=== PATIENT | male | born 1970 | race Caucasian/White ===

== ENCOUNTER 2018-01-04 12:20 | Inpatient (IN) | payer SELFPAY ==
[2018-01-04 12:56] LABS: #Basophils 0.1 thou/uL (0.0-0.2); #Eosinphils 0.1 thou/uL (0.0-0.7); #Lymphocytes 2.4 thou/uL (1.20-3.40); #Monocytes 1.1 thou/uL (0.11-0.59); %Basophils 0.6 % (0.0-1.0); %Eosinophils 0.5 % (0.0-10.0); %Lymphocytes 15.2 % (21.0-51.0); %Monocytes 7.2 % (0.0-10.0); %Neutrophils 76.5 % (42.0-75.0); Hemoglobin 15.9 g/dL (14.0-18.0); Mean Corpuscular HGB CONC 34.8 g/dL (32.0-36.0); Mean Corpuscular Hemoglobin 32.3 pg (27.0-31.0); Mean Platelet Volume 7.8 fL (7.4-10.4); Platelet Count 303 thou/uL (130-400); Red Blood Cell (RBC) Count 4.91 mill/uL (4.70-6.10); White Blood Cell (WBC) Count 15.7 thou/uL (4.8-10.8)
[2018-01-04 13:10] LABS: ALT (SGPT) 23 U/L (8-55); AST (SGOT) 25 U/L (5-34); Albumin 4.3 g/dL (3.5-5.0); Alkaline Phosphatase 116 U/L (40-150); Anion Gap 26 mmol/L (10-20); BUN (Urea Nitrogen) 58 mg/dL (8.9-20.6); Bilirubin, Total 0.3 mg/dL (0.2-1.2); CK (CPK) 681 U/L (30-200); Calc. Creatinine Clearance 0 mL/min (70-130); Calcium 8.8 mg/dL (7.8-10.44); Carbon Dioxide 13 mmol/L (22-29); Chloride 100 mmol/L (98-107); Estimated GFR-MDRD 8; Globulin 3.5 g/dL (2.4-3.5); Glucose 157 mg/dL (70-105); Lipase 37 U/L (8-78); Potassium 3.8 mmol/L (3.5-5.1); Protein, Total 7.8 g/dL (6.0-8.3); Sodium 135 mmol/L (136-145)
[2018-01-04 13:14] LABS: Troponin I Less than 0.010 ng/mL (< 0.028)
[2018-01-04 13:18] LABS: CKMB 12.3 ng/mL (0-6.6)
[2018-01-04 14:17] LABS: Acetaminophen Less than 6.0 mcg/mL (10.0-30.0); Alcohol Less than 10 mg/dL (Less than 10)
[2018-01-04 15:15] LABS: Lactic Acid 2.2 mmol/L (0.5-2.2)
--- NOTE | 2018-01-04 15:31 | RAD ---
PORTABLE AP CHEST XRAY: DATE: 01/04/18. HISTORY: Syncope. COMPARISON: None available. FINDINGS: Cardiac silhouette is magnified by projection but is at the upper limits of normal in size. Pulmonar y vasculature is within normal limits. The lungs are clear. Osseous structures are intact. IMPRESSION: No acute cardiopulmonary process. POS: [facility]
--- NOTE | 2018-01-04 15:41 | CT ---
ABDOMEN AND PELVIC CT SCAN WITHOUT IV CONTRAST: History: 47-year-old male with history of abdominal pain with vomiting and back muscle spasms. FINDINGS: The lung bases appear to be clear of acute process other than some dependent positional changes poste riorly in the lower lungs. The liver, gallbladder, pancreas, spleen, and adrenal glands are unremarka ble. No renal calculus or obstruction. Normal appearing appendix. Bilateral fat containing inguina l hernias, larger on the right side. No abscess, adenopathy, or abnormal fluid collection within the abdomen or pelvis. IMPRESSION: Bilateral fat containing inguinal hernias, larger on the right side. Posterior positional changes in the lower lung zones. No other significant process. POS: [facility]
--- NOTE | 2018-01-04 15:55 | CT ---
BRAIN CT WITHOUT IV CONTRAST: History: 47-year-old male with history of syncope, neck pain. FINDINGS: There is some focal right scalp swelling over the right parietal lobe. Abnormal encephalomalacic wallace ges in the left posterior fossa, evidence for old infarct changes involving the left cerebellar hemis phere. No mass or midline shift. No intra or extraaxial hemorrhage. IMPRESSION: Evidence for old left cerebellar hemisphere infarct changes. No mass or bleed or other acute process. Right focal parietal scalp swelling. POS: [facility]
--- NOTE | 2018-01-04 16:06 | CT ---
NONCONTRAST CT CERVICAL SPINE: Date: 01-04-18 History: Syncopal episode, bad neck pain at work. Technique: Contiguous axial CT images are obtained through the cervical spine from skull base to the T1-2 level. Sagittal and coronal reformatted images are provided. FINDINGS: There is no evidence of fracture, subluxation involving the cervical spine. There are degenerative ch anges in the cervical spine with uncinate process hypertrophy on the right at the C3-4 level resultin g in mild right sided neural foraminal narrowing. Uncinate process hypertrophy also present at the C4 -5 level resulting in mass effect on the subarachnoid space without significant narrowing of the cent ral spinal canal. No fracture or subluxation is seen involving the cervical spine. There is straightening of the normal cervical lordotic curvature. Prevertebral soft tissues are within normal limits. Lung apices are clear. IMPRESSION: Mild degenerative changes of the cervical spine, but no fracture or subluxation seen. POS: [facility]
[2018-01-04] MEDS ORDERED: Ondansetron HCl/PF 4 MG/2 ML Vial IVP PRN (16:13)
[2018-01-04] MEDS ORDERED: Bisacodyl 5 MG TAB PO PRN (16:13)
[2018-01-04] MEDS ORDERED: Senokot 8.6 MG TAB PO PRN (16:13)
[2018-01-04 17:39] LABS: Hemoglobin A1c 7.9 % (4.0-6.0)
[2018-01-04 17:40] LABS: Acetaminophen Less than 6.0 mcg/mL (10.0-30.0); Alcohol Less than 10 mg/dL (Less than 10); Salicylate Less than 8.0 mg/dL (15.0-30.0)
--- NOTE | 2018-01-04 18:55 | HP ---
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 CHIEF COMPLAINT: Syncope. HISTORY OF PRESENT ILLNESS: This is a 47-year-old male with a known history of hypertension, who pre sents today after feeling very lightheaded and nearly passing out while at work. 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 The patient denies any prior similar issues. Endorses feeling overall weak and fatigued over the last few days where he has also been trying to increase his water and Powerade int deanna to try "keep from being dehydrated." The patient states that he typically drinks very little dur ing his 8-9 hour shift at work, but does try to keep up with fluid intake at home. At the time of my evaluation in the emergency department, the patient states that he feels significan tly better. Of note, it appears upon initial presentation to the ER, he was found to have a systolic blood pressure in the 50s. At the time of my evaluation, the patient's blood pressure has been sign ificantly improved and is currently running with systolic in the 90-110 range. The patient has also received 3 liters IV fluid at the time of my evaluation. REVIEW OF SYSTEMS: As per HPI. Constitutional: No fevers, no chills, no significant weight loss or gain over the last 2 months. HEENT: The patient endorses having a sensation of lightheadedness bef ore coming in, particularly when standing up or sitting up. The patient states he has not tried to g et out of bed since being in the emergency department, so he is unable to tell me if that is improved . Denies any other vision changes or dizziness. Denies any headaches. Cardiovascular: Denies any chest pain, chest pressure, left-sided arm numbness or tingling. Respiratory: Denies any shortness of breath, dyspnea with exertion, cough, congestion or recent upper respiratory illness. Gastrointes tinal: Denies any nausea, vomiting, abdominal pain, diarrhea or constipation. Of note, the patient states that he will occasionally get "heartburn" which is alleviated by taking Pepto-Bismol. He has been having increased bouts of this over the last 2-3 weeks where he has an episode every 2-3 days, t ypically while he is working. Musculoskeletal: Denies any new myalgias or arthralgias. Skin: No n ew rashes or lymphadenopathy. Genitourinary: Denies any change in urinary frequency, quantity, colo r or output. The patient states that his urine typically is pretty dark at work where he drinks very little and what he does drink tends to be soda. However, the patient states that when he drinks martha er and Powerade it tends to "clear up." Over the last few days while trying to drink more water and Powerade, he denies that his urine has" cleared up" as it typically does. Remainder review of system s is otherwise negative. PAST MEDICAL HISTORY: Significant for; 1. Hypothyroidism. 2. Hypertension. PAST SURGICAL HISTORY: Denies any prior surgery. HOME MEDICATIONS: It appears that he does not have any medications currently listed as his medicatio n list in the EMR. His is with him at bedside and states that she needs to go home in order to get his medication list. She states that he does take a thyroid medication, two blood pressure medic ations including clonidine as one of them. She also indicates that he takes ibuprofen and some other medication that she cannot recall for some occasional sciatic pain. ALLERGIES: No known drug allergies. FAMILY HISTORY: The patient denies any known family history of renal disease or cerebrovascular dise ase or cardiac disease. 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 Denies any drugs, alcohol, or tobacco use. He i s accompanied today by his at bedside and states he wishes to be FULL CODE at this point in time . PHYSICAL EXAMINATION: GENERAL: The patient is awake, alert, and conversant. Reasonable affect and a reasonable historian. HEENT: Normocephalic, atraumatic. Slightly dry mucous membranes. Equal ocular motions are intact. CARDIOVASCULAR: S1, S2. No murmurs, rubs or gallops. Soft heart tones. Pulses 2+ bilateral upper extremities. No pitting pedal edema. RESPIRATORY: Reasonable air movement. No conversational dyspnea. No wheezes, no rales. Grossly cl ear to auscultation. ABDOMEN: Positive bowel sounds, large, soft, nontender to palpation. MUSCULOSKELETAL: Moving all 4 extremities independently and able to sit up in the bed without diffic ulty or assistance. LABORATORY DATA AND IMAGING DATA: WBC 15.7, hemoglobin 15.9, hematocrit 45.6, platelets 303. Sodium 135, potassium 3.8, chloride 100, BUN 58, creatinine 7.26, glucose 157. Lactic acid 2.2, calcium 8. 8, total bilirubin 0.3, AST 25, ALT 23, alkaline phosphatase 116, creatine kinase 681, troponin less than 0.01. Total protein 7.8, albumin 4.3. So far the toxicology demonstrates salicylate of 13.0, a cetaminophen less than 6, alcohol less than 10 and beta hydroxybutyrate 1.[address] result. Impression: "Mild degenerative changes of the cervical spine, but no frac ture or subluxation seen." On 01/04/2018, brain CT. Impression: "Evidence for old left cerebellar hemisphere infarct changes. No mass or bleed or other acute process. Right focal parietal scalp swelling." On 01/04/2018, abdomen and pelvis CT. Impression: "Bilateral fat containing inguinal hernias, large r on the right side. Posterior positional changes in the lower lung zones. No other significant pro cess." On 01/04/2018, chest x-ray. Impression: "No acute cardiopulmonary process." ASSESSMENT AND PLAN: This is a 47-year-old male who presented with a chief complaint of syncope. 1. Syncope with hypotension on the initial presentation, the patient's blood pressure significantly improved with IV fluid hydration. We will closely continue to monitor. We would recommend checking orthostatic vital signs in this gentleman. Concern for a component of dehydration; however, his pict ure is complicated by other issues as well. 2. Acute kidney injury with a creatinine of 7.0 and no other known prior history of chronic renal di sease. Continue with hydration. Recheck a BMP. We will check urine electrolytes. It will be impor tant to obtain the patient's home medication regimen as well. I appreciate Nephrology consultation. Question if this is purely prerenal or related to some other process. 3. Hypothyroidism. Unknown levothyroxine dose. Again, we will need to obtain a medication reconcil iation. In the meantime, check a TSH. 4. Old cerebellar infarct of which the patient is unaware of. This is a new diagnosis as far as the patient is concerned, however, this sounds like an old event as well. Apparently, there are no resi dual deficits at this point in time. However, it would be important to assess for modifiable risk fa ctors in this patient as well. 5. Vague complaint of abdominal discomfort while this certainly could be a reflux in this gentleman who has already sustained a stroke and has risk factor including hypertension. We will go ahead and check a second troponin. Obtain a repeat EKG and an echocardiogram on the off chance that he has als o sustained a silent cardiac event that may compound his ability to tolerate IV fluid hydration. 6. Diet: As tolerated. 7. Activity: As tolerated. Orthostatic vital signs requested. 8. Deep venous thrombosis prophylaxis with heparin. Thank you for asking me to care for the patient. Questions or concerns, contact me at [facility].
[2018-01-04 20:04] LABS: Bilirubin Negative (Negative); Blood, Urine Moderate (Negative); Clarity CLEAR (Clear); Glucose, Urine (Dipstick) Negative (Negative); Leukocyte Negative (Negative); Nitrite Negative (Negative); Protein, Urine (Dipstick) 30 mg/dL (Neg-Trace); Specific Gravity, Urine 1.016 (1.002-1.036); Urobilinogen 0.2 mg/dL (0.2-1.0)
[2018-01-04 20:07] LABS: Bacteria/HPF None Seen HPF (None Seen); RBC/HPF 0-3 HPF (0-3); Squamous Epithelial 0-3 HPF (0-3); WBC/HPF 0-3 HPF (0-3)
[2018-01-04 20:08] LABS: Pathc Cast-AUWi Flag 3.48 (0-2.49)
[2018-01-04 20:19] LABS: Hyaline Casts/LPF 4-6 HYALINE CAST LPF (0-3 Hyaline); Other Casts/LPF None Seen LPF (0-3 Hyaline)
[2018-01-04 20:20] LABS: Creatinine, Urine 123.52 mg/dL (63-166)
[2018-01-04] MEDS: Lactated Ringer's 1,000 ML IV SCH (20:51)
--- NOTE | 2018-01-04 22:12 | ULT ---
RENAL ULTRASOUND: History: Renal insufficiency. FINDINGS: Real-time imaging of the right and left kidneys were performed. The right kidney measures 12.1 cm and the left kidney 10.7 cm in size. No signs of cyst, mass, or obstruction. Bladder region is unremarka ble. Bilateral ureteral jets are noted. IMPRESSION: Unremarkable renal ultrasound. POS: [facility]
[2018-01-04] MEDS: Heparin 5,000 UNITS/ML VIAL SC SCH (22:50)
[2018-01-04] MEDS: Docusate 100 MG CAP PO SCH (22:50)
[2018-01-04] MEDS: Famotidine/PF 20 mg/2ml Vial SLOW IVP SCH (22:53)
--- NOTE | 2018-01-05 03:20 | CON ---
DATE OF CONSULTATION: 01/04/2018 HISTORY OF PRESENT ILLNESS: Mr. Samuel is a 47-year-old white male who was admitted for syncopal epis ode. According to the history, the patient passed out while working. 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 During the initial evaluation at the ER, he was noted to be in acute kidney injury. Caitlyn ent denies any previous knowledge of any kidney dysfunction. REVIEW OF SYSTEMS: Positive for syncopal episode. No chest pain. No shortness of breath, no nausea , no vomiting, no diarrhea. Appetite fair. Energy level is fair. No abdominal pain, no headache, n o fever or chills, no gross hematuria, no dysuria, no frequency, occasional joint pains. Positive fo r some myalgia. HOME MEDICATIONS: Lisinopril/hydrochlorothiazide -- 20/25 one tab daily, clonidine 0.1 mg b.i.d., ib uprofen 800 mg b.i.d., famotidine 20 mg tab once a day, levothyroxine 75 mcg. PAST MEDICAL HISTORY: Hypertension, DJD, hypertension, hypothyroidism. PAST SURGICAL HISTORY: No significant surgeries. SOCIAL HISTORY: Patient is , two stepchildren, lives with his . No smoking, no alcohol i ntake. Originally from [place], currently lives in [place], moved recently in this area. 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 Education 7th grade. No IV drug abuse. No blood transfusion . ALLERGIES: None. TRAUMA: None. IMMUNIZATIONS: Not up to date. HOSPITALIZATIONS: Please see past medical history. PHYSICAL EXAMINATION: VITAL SIGNS: Blood pressure is currently at 176/94, heart rate is noted at 48, temperature 97.8, O2 sat 98%, respiratory rate 21, temperature 97.8. GENERAL: Awake, alert, supine, comfortable, morbidly obese. SKIN: Adequate turgor. HEENT: He has pinkish conjunctivae, anicteric sclerae. NECK: No neck mass, no carotid bruits, no JVD. CHEST: No deformities. LUNGS: Clear breath sounds, no wheezing, no crackles. HEART: Bradycardic. No murmur, no gallops or rubs. ABDOMEN: Globular, soft, nontender, no masses. EXTREMITIES: No edema, no deformities. NEUROLOGIC: Awake, oriented to 3 spheres. Moving all extremities. No tremors. No asterixis. No a taxia. LABORATORY DATA: On 01/04/2018, white count 15.7, hemoglobin 15.9, hematocrit 45.6. Sodium 135, pot assium 4.8, chloride 100, carbon dioxide 13, BUN 58, creatinine 7.26, glucose 157, calcium 8.8, AST 2 5, ALT 23, albumin 4.3, troponin I less than 0.010. TSH 3.4. Chest x-ray of 01/04/2018 showed no ac [place] cardiopulmonary process. CT scan of the abdomen and pelvis shows bilateral fat containing inguin al hernias. No acute intra-abdominal pathology. CT scan of the brain, old left cerebellar hemispher ic infarct. CT scan of the cervical spine shows mild DJD. Urinalysis shows protein of 30, no pigmented granular casts. Urine creatinine 123. Urine sodium is 70. ASSESSMENT AND PLAN: 1. Acute kidney injury, consider hemodynamically mediated renal dysfunction. Patient has been takin g NSAIDs and lisinopril/hydrochlorothiazide. He may also have a component of volume depletion. Agre e with the aggressive volume repletion. I will at least maintain this patient on lactated Ringer's a t 125 mL per hour. There is no evidence of acute tubular necrosis based on the urine sediment. A re nal ultrasound is being done with this patient. Please note that there is no indication for any acute dialytic intervention tonight. 2. Bradycardia. The patient is off clonidine. 3. Hypertension. Hold lisinopril/hydrochlorothiazide -- Start nifedipine 30 mg XL tab once a day. Overall, agree with current management. Case discussed at length with the patient and his .
[2018-01-05] MEDS: NIFEdipine XL 30 MG TAB PO SCH (03:58)
[2018-01-05] MEDS: Lactated Ringer's 1,000 ML IV SCH ×3 (03:59→20:29)
[2018-01-05 06:28] LABS: #Basophils 0.1 thou/uL (0.0-0.2); #Eosinphils 0.2 thou/uL (0.0-0.7); #Lymphocytes 2.9 thou/uL (1.20-3.40); #Monocytes 0.9 thou/uL (0.11-0.59); #Neutrophils 6.2 thou/uL (1.40-6.50); %Basophils 0.8 % (0.0-1.0); %Eosinophils 1.7 % (0.0-10.0); %Lymphocytes 28.3 % (21.0-51.0); %Monocytes 8.4 % (0.0-10.0); %Neutrophils 60.8 % (42.0-75.0); Hemoglobin 13.2 g/dL (14.0-18.0); Mean Corpuscular HGB CONC 35.4 g/dL (32.0-36.0); Mean Corpuscular Hemoglobin 33.3 pg (27.0-31.0); Mean Corpuscular Volume 93.9 fL (78.0-98.0); Mean Platelet Volume 8.2 fL (7.4-10.4); Platelet Count 235 thou/uL (130-400); RBC Distribution Width 11.9 % (11.5-14.5); Red Blood Cell (RBC) Count 3.96 mill/uL (4.70-6.10); White Blood Cell (WBC) Count 10.1 thou/uL (4.8-10.8)
[2018-01-05 06:39] LABS: Anion Gap 13 mmol/L (10-20); BUN (Urea Nitrogen) 43 mg/dL (8.9-20.6); Calc. Creatinine Clearance 56 mL/min (70-130); Carbon Dioxide 19 mmol/L (22-29); Chloride 108 mmol/L (98-107); Estimated GFR-MDRD 22; Glucose 189 mg/dL (70-105); Potassium 3.2 mmol/L (3.5-5.1); Sodium 137 mmol/L (136-145)
[2018-01-05] MEDS: Heparin 5,000 UNITS/ML VIAL SC SCH ×3 (08:35→20:29)
[2018-01-05] MEDS: Docusate 100 MG CAP PO SCH ×2 (08:35→20:28)
[2018-01-05] MEDS ORDERED: Potassium Chloride 20 MEQ TAB PO SCH (10:00)
[2018-01-05] MEDS ORDERED: Cyclobenzaprine 10 MG TAB PO PRN (10:22)
--- NOTE | 2018-01-05 10:24 | PDOC.PN ---
- Subjective Encounter Start Date: 01/05/18 Encounter Start Time: 10:22 Subjective: nsg notes rev, maykel ovn, pt no new c/o, at bedside -: overall feels better, states he heard about the cerebellar stroke -: before. needs to get set up with new PCP - Objective Vital Signs & Weight: Vital Signs (12 hours) Temp Pulse Resp BP Pulse Ox 01/05/18 08:23 99 01/05/18 07:28 98.4 F 52 L 17 100 01/05/18 04:00 98.4 F 01/05/18 03:58 48 L 170/80 H Weight Weight 296 lb 4.82 oz Most Recent Monitor Data Heart Rate from ECG 54 NIBP 146/85 NIBP BP-Mean 96 Respiration from ECG 13 SpO2 99 I&O: 01/04/18 01/05/18 01/06/18 06:59 06:59 06:59 Intake Total 2210 0 Output Total 2150 725 Balance 60 -725 Result Diagrams: 01/05/18 02:51 01/05/18 02:51 Phys Exam - Physical Examination Constitutional: NAD lying in hospital bed HEENT: PERRLA, moist MMs, sclera anicteric Respiratory: no wheezing, no rales, no rhonchi, clear to auscultation bilateral Cardiovascular: RRR, no significant murmur, no rub Gastrointestinal: soft, non-tender, no distention, positive bowel sounds Musculoskeletal: pulses present Neurological: moves all 4 limbs Psychiatric: normal affect, A&O x 3 Dx/Plan - Plan cont current plan of care 1. Syncope with hypotension hypotension resolved, starting to resume home hypertension hold home lisinopril/ hctz, has been started on nifedipine 2. Acute kidney injury apprec nephrology c/s continue IVF improving renal fxn, repeat BMP in AM 3. Hypothyroidism. stable, cont home levothyroxine 4. Old cerebellar infarct stable 5. Vague complaint of abdominal discomfort resolved 6. Diet: As tolerated. 7. Activity: As tolerated. Orthostatic vital signs requested. 8. Deep venous thrombosis prophylaxis with heparin. transfer to tele d/w pt and and bedside nsg Review of Systems - Medications/Allergies Allergies/Adverse Reactions: Allergies Allergy/AdvReac Type Severity Reaction Status Date / Time No Known Allergies Allergy Unverified 01/04/18 17:53 Medications: Current Medications Bisacodyl (Dulcolax) 10 mg PO DAILYPRN PRN PRN Reason: Constipation Cyclobenzaprine HCl (Flexeril) 5 mg PO TID PRN PRN Reason: Muscle Spasm Docusate Sodium (Colace) 100 mg PO BID [facility] Last Admin: 01/05/18 08:35 Dose: 100 mg Famotidine (Pepcid) 20 mg SLOW IVP 2100 [facility] Last Admin: 01/04/18 22:53 Dose: 20 mg Heparin Sodium (Porcine) (Heparin) 5,000 units SC TID [facility] Last Admin: 01/05/18 08:35 Dose: 5,000 units Lactated Ringer's (Lactated Ringer's) 1,000 mls @ 125 mls/hr IV .Q8H [facility] Last Admin: 01/05/18 03:59 Dose: 1,000 mls Levothyroxine Sodium (Synthroid) 75 mcg PO 0600 [facility] Nifedipine (Procardia Xl) 30 mg PO DAILY [facility] Last Admin: 01/05/18 03:58 Dose: 30 mg Ondansetron HCl (Zofran) 4 mg IVP Q6H PRN PRN Reason: Nausea/Vomiting Potassium Chloride (K-Dur) 20 meq PO 1000 [facility] Stop: 01/05/18 12:00 Last Admin: 01/05/18 09:40 Dose: 20 meq Senna (Senokot) 2 tab PO HSPRN PRN PRN Reason: Constipation
--- NOTE | 2018-01-05 10:48 | PRG ---
DATE OF SERVICE: 01/05/2018 SERVICE: Renal Medicine. SUBJECTIVE: Mr. Samuel is a 47-year-old white male, who was seen for an acute kidney injury that was hemodynamically-mediated renal dysfunction. He was empirically given volume repletion. Please note, this patient has been taking NSAIDs and FOUZIA inhibitors. The ____ been discontinued. This morning, he has no new complaints. Feeling better. No chest pain or shortness of breath. PHYSICAL EXAMINATION: VITAL SIGNS: Blood pressure 149/85, heart rate 67, respiratory rate 20, pulse ox 99%. GENERAL EXAM: Awake, supine, comfortable, obese, not in distress. SKIN: Adequate turgor. HEENT: He has pinkish conjunctivae, anicteric sclerae. NECK: No neck mass, no carotid bruits, no JVD. CHEST: No deformities. LUNGS: Clear breath sounds. No wheezing, no crackles. HEART: Normal sinus rhythm. No murmur, no gallops, no rubs. ABDOMEN: Globular, soft, nontender, no masses. EXTREMITIES: No edema, no deformities. Medications of 01/05/2018 reviewed. LABORATORY DATA: Laboratories of 01/05/2018, white count 10.1, hemoglobin 13.2. Sodium 137, potassi um 3.2, chloride 108, carbon dioxide 19, BUN 43, creatinine 3.02, glucose 189, calcium 8.0. Troponin I less than 0.010. Renal ultrasound of 01/04/2018, unremarkable renal ultrasound. ASSESSMENT AND PLAN: 1. Acute kidney injury - hemodynamically-mediated renal dysfunction. Continue supportive care, cont inue IV hydration until the patient reaches baseline renal function, which I presume is a normal crea tinine. No indication for any dialytic intervention. He is tolerating IV fluid. 2. Mild hypokalemia, p.r.n. potassium supplementation. 3. Hypertension, stable. Continue current nifedipine. Recheck basic metabolic panel and CBC in a.m.
[2018-01-05 17:45] VITALS: BMI 35.9
[2018-01-05] MEDS: Famotidine/PF 20 mg/2ml Vial SLOW IVP SCH (20:28)
--- NOTE | 2018-01-06 02:10 | CON ---
DATE OF CONSULTATION: 01/05/2018 HISTORY OF PRESENT ILLNESS: Sohail Samuel is a 47-year-old gentleman who was admitted for syncope. 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 He denies working outdoors. He was admitted with acute renal failure. He is improved. I was consulted because of his presence in the ICU. PAST MEDICAL HISTORY: Remarkable for hypothyroidism, on Synthroid; hypertension , on lisinopril, hydrochlorothiazide, on Catapres; and history of reflux, on Pepcid. SOCIAL HISTORY: He is a nonsmoker, nondrinker. He does not use drugs. 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 FAMILY HISTORY: Negative for lung disease in early age. ALLERGIES: He has no drug allergies. REVIEW OF SYSTEMS: Ten point system review completed, otherwise negative. He says he is feeling better. PHYSICAL EXAMINATION: VITAL SIGNS: He is afebrile, heart rate 57, respiratory rate is 16, oximetry is 97 on room air, blood pressure 158/101. HEENT: Pupils are equal. Sclerae is anicteric. NECK: Supple. LUNGS: Clear. HEART: Regular rhythm. S1 and S2 are normal. There is no S4. ABDOMEN: Soft and nontender. EXTREMITIES: No clubbing, cyanosis, or edema. NEUROLOGIC: Nonfocal. LABORATORY DATA AND IMAGING: Ejection fraction is normal on echo. He has no valvular heart disease. White count 10.1, hemoglobin 13.2, platelets 235. Sodium 137, potassium 3.2, chloride 108, bicarb 19, BUN 43, creatinine 3.02. IMPRESSION AND PLAN: 1. Acute renal failure secondary to intravascular volume depletion. 2. Probable chronic underlying hypertensive renal disease. Hopefully, his renal function will return to normal. 3. Hypertension, poorly controlled. 4. Obesity, at risk for sleep apnea. He denies snoring. His family denies any symptoms of sleep apnea, so it will be reasonable to get a sleep study at a later date. He is stable to move out of the critical care unit. His blood pressure needs to be controlled. Given that he has poor p.o. intake of liquids during the day, it would be reasonable to eliminate the diuretic from his hypertension medications. This is a 70 minute consult with greater than 50% of time spent on unit with coordination of care. [facility]
[2018-01-06 05:58] LABS: #Basophils 0.1 thou/uL (0.0-0.2); #Eosinphils 0.2 thou/uL (0.0-0.7); #Lymphocytes 2.5 thou/uL (1.20-3.40); #Monocytes 0.7 thou/uL (0.11-0.59); #Neutrophils 3.7 thou/uL (1.40-6.50); %Basophils 0.8 % (0.0-1.0); %Eosinophils 2.4 % (0.0-10.0); %Lymphocytes 34.8 % (21.0-51.0); %Monocytes 9.9 % (0.0-10.0); %Neutrophils 52.1 % (42.0-75.0); Hemoglobin 13.4 g/dL (14.0-18.0); Mean Corpuscular HGB CONC 35.6 g/dL (32.0-36.0); Mean Corpuscular Hemoglobin 33.2 pg (27.0-31.0); Mean Corpuscular Volume 93.1 fL (78.0-98.0); Mean Platelet Volume 7.8 fL (7.4-10.4); Platelet Count 245 thou/uL (130-400); RBC Distribution Width 11.8 % (11.5-14.5); Red Blood Cell (RBC) Count 4.04 mill/uL (4.70-6.10); White Blood Cell (WBC) Count 7.1 thou/uL (4.8-10.8)
[2018-01-06] MEDS ORDERED: Levothyroxine Sodium 75 MCG TAB PO SCH (06:00)
[2018-01-06 06:14] LABS: Anion Gap 11 mmol/L (10-20); BUN (Urea Nitrogen) 23 mg/dL (8.9-20.6); Calc. Creatinine Clearance 169 mL/min (70-130); Calcium 8.7 mg/dL (7.8-10.44); Carbon Dioxide 23 mmol/L (22-29); Chloride 107 mmol/L (98-107); Cholesterol 169 mg/dl (< 200 Desired); Estimated GFR-MDRD 79; Glucose 161 mg/dL (70-105); HDL Cholesterol 34 mg/dL (>60 Neg Risk); LDL Cholesterol, Calculated 76 mg/dL; Potassium 3.1 mmol/L (3.5-5.1); Sodium 138 mmol/L (136-145); Triglycerides 293 mg/dL (Less than 150)
[2018-01-06] MEDS: NIFEdipine XL 30 MG TAB PO SCH (08:07)
[2018-01-06] MEDS: Docusate 100 MG CAP PO SCH (08:07)
[2018-01-06] MEDS: Heparin 5,000 UNITS/ML VIAL SC SCH (08:08)
[2018-01-06] MEDS ORDERED: Potassium Chloride 20 MEQ TAB PO SCH (09:15)
--- NOTE | 2018-01-06 09:47 | PRG ---
DATE OF SERVICE: 01/06/2018 SERVICE: Renal Medicine. SUBJECTIVE: Mr. Samuel is a 47-year-old white male who was seen for an acute kidney injury that was h emodynamically mediated renal dysfunction. He was taking FOUZIA inhibitors as well as NSAIDs. This has been discontinued. He has also received IV hydration. He has done quite well. Renal function is m uch improved. No complaints of chest pain or shortness of breath. OBJECTIVE: VITAL SIGNS: Blood pressure 150/95, heart rate 71, respiratory rate 20, temperature 98.2, pulse ox 9 6%. GENERAL: Awake, alert, sitting comfortable, obese. SKIN: Adequate turgor. HEENT: Pinkish conjunctivae, anicteric sclerae. NECK: No neck mass, no carotid bruits, no JVD. CHEST: No deformities. LUNGS: Clear breath sounds, no wheezing, no crackles. HEART: Normal sinus rhythm. No murmur, no gallops or rubs. ABDOMEN: Globular, soft, nontender, no masses. EXTREMITIES: No edema. MEDICATIONS: Of 01/06/2018 was reviewed. LABORATORY DATA: Of 01/06/2018, white count 7.1, hemoglobin 13.4. Sodium 138, potassium 3.1, chlori de 107, carbon dioxide 23, BUN 23, creatinine 1, calcium 8.7, triglyceride 293, cholesterol 169. ASSESSMENT AND PLAN: 1. Acute kidney injury - hemodynamically mediated renal dysfunction. Much improved with IV hydratio n. Continue to hold off FOUZIA inhibitors and NSAIDs. We will be signing off due to the much improved renal function. We will follow up at the [facility]. 2. Mild hypokalemia. KCl 40 mEq 1 tab now.
[2018-01-06] MEDS: Lactated Ringer's 1,000 ML IV SCH (10:04)
[2018-01-06] MEDS ORDERED: NIFEdipine XL 30 MG TAB PO SCH (10:30)
--- NOTE | 2018-01-06 11:16 | ULT ---
VENOUS DUPLEX SONOGRAM LEFT LOWER EXTREMITY: Date: 01/06/18 HISTORY: Left leg pain and edema. FINDINGS: The left common femoral vein and greater saphenous junction were evaluated, along with the femoral, deep femoral, popliteal, and posterior tibial veins. There is good color and spectral Doppler flow, c ompression, and augmentation. IMPRESSION: No sonographic evidence of deep venous thrombosis within the left lower extremity. POS: [facility]
[2018-01-06] MEDS ORDERED: Acetaminophen 325 MG TAB PO PRN (12:19)
[2018-01-06 12:31] VITALS: BP 138/101; TEMP 98.9
--- NOTE | 2018-01-06 13:59 | DIS ---
DATE OF ADMISSION: 01/04/2018 DATE OF DISCHARGE: 01/06/2018 PRIMARY CARE PROVIDER: None. DISCHARGE DIAGNOSES: 1. Syncope. 2. Hypotension. 3. Acute kidney injury. 4. Hypothyroidism. CONDITION OF PATIENT ON THE DAY OF DISCHARGE: Stable. I assessed Mr. Samuel on the day of discharge. He denies any chest pain or shortness of breath. Vital signs are stable. S1 and S2 are heard, regular. Lungs are clear to auscultation bilaterally. CONSULTATIONS DURING THIS HOSPITALIZATION: Nephrology, Dr. Katz. DISCHARGE MEDICATIONS: Clonidine 0.1 mg daily, Flexeril 10 mg 3 times a day as needed, levothyroxine 75 mcg daily, Procardia XL 60 mg daily. HOSPITAL COURSE: Mr. Samuel is a pleasant 47-year-old gentleman who was admitted to [facility] on 01/04/2018 for syncope, hypotension and acute kidney injury. Please refer to Dr. Mathews's history and physical note dated 01/04/2018 for further information. He was seen by Nephrology Service. A 2D echocardiogram showed left ventricle ejection fraction of 55%-60%. Renal ultrasound was unremarkable. He also had left lower extremity Doppler, which did not reveal any DVT. He improved with intravenous fluids. His creatinine was 7.26 on the day of admission, decreased to 1.00 on the day of discharge. He does have elevated triglycerides of 293, cholesterol 169, LDL cholesterol 76 and HDL cholesterol 34. He is advised to follow up with a primary care provider for lipid management. His blood pressure was high towards the end of his admission. Lisinopril and hydrochlorothiazide were discontinued. He has been started on Procardia XL 60 mg daily. On the day of discharge, he has sodium 138, potassium 3.1, which was replaced, creatinine 1, white count 7100, hemoglobin 13.4 and platelet count 245,000. Many thanks for allowing me to participate in your patient's care. Please feel free to contact me with any questions or concerns. DISCHARGE DISPOSITION: Home. TOTAL AMOUNT OF TIME SPENT COORDINATING THIS DISCHARGE: Thirty three minutes. ZACH
[2018-01-07] MEDS ORDERED: NIFEdipine XL 60 MG TAB PO SCH (09:00)
== END 2018-01-06 14:42 | disposition home or self-care (01) | DRG 684 ==
LOC: ERS 12:20 → CCU 19:02 → 2SE 01-05 17:37
PROVIDERS: ADMIT Internal Medicine; ATTEND Internal Medicine
DX: N17.9 Acute kidney failure, unspecified (principal); R55 Syncope and collapse; I10 Essential (primary) hypertension; E03.9 Hypothyroidism, unspecified; I95.9 Hypotension, unspecified; E87.6 Hypokalemia; M19.90 Unspecified osteoarthritis, unspecified site; E66.9 Obesity, unspecified; Z68.35 Body mass index [BMI] 35.0-35.9, adult; Z86.73 Personal history of transient ischemic attack (TIA), and cerebral infarction without residual deficits
CPT/HCPCS: 36415; 36416; 70450; 71045; 72125; 74176; 76770; 80048; 80053; 80061; 80307; 81001; 82010; 82550; 82553; 82570; 83036; 83605; 83690; 84300; 84443; 84484; 85025; 93005; 93306; 96360; 96361; G8978-GP-CJ; G8979-GP-CH; J1644; S0028